=== PATIENT | male | born 1980 | race Caucasian/White ===

== ENCOUNTER 2019-07-02 07:39 | Outpatient (CLI) | payer BC ==
--- NOTE | 2019-07-02 09:02 | ULT ---
ABDOMINAL ULTRASOUND: Date: 07/02/19 HISTORY: Gastroenteritis. Abdominal pain. FINDINGS: Gallbladder has a normal appearance. No evidence of gallstones. Common duct is normal caliber measure d at 2.0 mm. The visualized aorta and IVC are unremarkable. Pancreas is unremarkable as visualized. L iver, spleen, and both kidneys are imaged and appear unremarkable. IMPRESSION: Unremarkable abdominal ultrasound. POS: [facility]
== END 2019-07-02 07:40 | disposition home or self-care (01) ==
LOC: SCSULT 07:39
PROVIDERS: ATTEND Internal Medicine Gastroenterology
DX: K62.5 Hemorrhage of anus and rectum (principal); K52.9 Noninfective gastroenteritis and colitis, unspecified; R63.4 Abnormal weight loss; K21.9 Gastro-esophageal reflux disease without esophagitis; R10.9 Unspecified abdominal pain; R11.0 Nausea; R68.81 Early satiety
CPT/HCPCS: 76700